=== PATIENT | female | born 1990 | race Caucasian/White ===

== ENCOUNTER → 2023-05-03 | Outpatient (CLI) | payer MEDICAID, SELFPAY ==
--- NOTE | 2023-05-03 15:58 | US_ITS ---
INDICATION: menorrhagia EXAMINATION: Ultrasound US Pelvis Non OB Complete With Transvaginal Imaging TECHNIQUE: Transabdominal and transvaginal pelvic ultrasound was performed. Grayscale, spectral waveform, and color flow Doppler evaluation of the adnexa. COMPARISON: FINDINGS: UTERUS: Anteverted. The uterus measures 9.4 x 4.7 x 4.4 cm. There is a 7 mm fibroid. The endometrial stripe measures 3 mm in AP diameter which is within normal limits. RIGHT OVARY: 4.1 x 2 point by 2.4 cm. There is a 2.1 cm cyst. There is normal arterial inflow and venous outflow present in the right ovary. LEFT OVARY: 3.1 x 2.4 x 1.7 cm. There is a 1.4 cm cystic nodule. There is a hyperechoic 5 mm nodule. There is normal arterial inflow and venous outflow present in the left ovary. FREE FLUID: Mild. US/Pelvic w/ Transvaginal IMPRESSION: Probable small fibroid. Mild pelvic fluid. Bilateral ovarian cysts. Hyperechoic subcentimeter left ovarian nodule. Electronically Signed: Emile Duke DO at 18:48 EST Reading Location ID and State: [address] [place] [address] Tel [phone], Service support ,
== END | disposition home or self-care (01) ==
LOC: US 15:57
PROVIDERS: PCP Nurse Practitioner Family; Referring Provider Nurse Practitioner Women's Health; Visit Provider Nurse Practitioner Women's Health
DX: N92.0 Excessive and frequent menstruation with regular cycle (principal)
CPT/HCPCS: 76830; 76856

== ENCOUNTER → 2023-07-25 | Outpatient (CLI) | payer MEDICAID, SELFPAY ==
[2023-07-31 13:07] LABS: HPV APTIMA, High Risk Negative (Negative)
== END | disposition home or self-care (01) ==
LOC: LABSPEC 15:09
PROVIDERS: PCP Nurse Practitioner Family; Referring Provider Advanced Practice Midwife; Visit Provider Advanced Practice Midwife
DX: Z12.4 Encounter for screening for malignant neoplasm of cervix (principal)
CPT/HCPCS: 87624; 88175; G0145

== ENCOUNTER → 2024-02-07 | Outpatient (CLI) | payer MEDICAID, SELFPAY ==
[2024-02-07 10:27] LABS: Hematocrit 38.9 % (37-47); Hemoglobin 12.9 g/dL (12.0-15.0); Mean Corp Hgb Conc 33.2 g/dL (32-36); Mean Corpuscular Hgb 29.9 pg (27.0-32.0); Mean Platelet Vol. 10.6 fl (6.2-12.0); Platelet Count 349 K/mm3 (150-450); RBC Distribution Width CV 12.3 % (11.6-14.6); RBC Distribution Width SD 40.6 fl (35.1-43.9); Red Blood Count 4.32 M/mm3 (4.2-5.4); White Blood Count 8.4 K/mm3 (4.4-11.0)
[2024-02-07 10:41] LABS: T4 Free Direct 0.88 ng/dL (0.76-1.46); Thyroid Stim Hormone (TSH) 0.578 uIU/mL (0.358-3.740)
== END | disposition home or self-care (01) ==
LOC: BWCLAB 08:44
PROVIDERS: PCP Nurse Practitioner Family; Referring Provider Obstetrics & Gynecology; Visit Provider Obstetrics & Gynecology
DX: N92.0 Excessive and frequent menstruation with regular cycle (principal)
CPT/HCPCS: 36415; 84439; 84443; 85027

== ENCOUNTER → 2024-02-12 | Outpatient (CLI) | payer MEDICAID, SELFPAY ==
--- NOTE | 2024-02-12 15:45 | EMB_PTH ---
PATIENT: RAJENDRA SULLIVAN LOC: [facility] U#:[id number] AGE/SX: 33/F ROOM: RE02/12/[address]: NADER Johnson : 1990 BED: DIS: 02/12/2024 SPEC #: [id number] RECD: 02/12/24 16:58 STATUS: FARRUKH REQ #: [id number] GISELE: 02/12/24 15:[address]: Naa Finch NP DEPT: SURGICAL PATHOLOGY RECD BY: Celina Sheldon ENTERED: 02/13/24 10:03 SP TYPE: ENDOM BX/C ERUM DR: NADER Arshad Tissues: Endometrium, NOS Procedures: Surgery Specimen Level IV HEADER OPERATION: Endometrial biopsy PRE-OP DIAGNOSIS: Abnormal uterine bleeding TISSUE SUBMITTED: Endometrial tissue MICROSCOPIC DIAGNOSIS Endometrial biopsy: Proliferative endometrium. 02/14/2024 MICROSCOPIC DESCRIPTION Slides are reviewed. GROSS DESCRIPTION Received in fixative is one container labeled with the patient's name and designated Endometrial tissue. The specimen consists of multiple irregular fragments of guillaume-pink soft tissue that in aggregate measure 3.0 x 2.5 x 0.2 cm. The specimen is totally submitted in one cassette. 02/14/2024 TC: 4 CPT:97123
== END | disposition home or self-care (01) ==
LOC: LABSPEC 16:31
PROVIDERS: PCP Nurse Practitioner Family; Referring Provider Nurse Practitioner Women's Health; Visit Provider Nurse Practitioner Women's Health
DX: N93.9 Abnormal uterine and vaginal bleeding, unspecified (principal)
CPT/HCPCS: 88305

== ENCOUNTER → 2024-02-16 | Outpatient (CLI) | payer MEDICAID, SELFPAY ==
--- NOTE | 2024-02-16 17:53 | US_ITS ---
STUDY: ULTRASOUND OF THE FEMALE PELVIS - COMPLETE REASON FOR EXAM: Female, 33 years old. Menorrhagia LMP: January 27, 2024. TECHNIQUE: Transabdominal and Transvaginal TECHNICAL QUALITY: Adequate. COMPARISON: Comparison is made with prior study dated May 03, 2023. FINDINGS: The uterus is anteverted and is in a midline position. The uterus measures 9 cm x 5 cm x 3.9 cm. Normal uterine cervix. The endometrium measures 11 mm in thickness, and is fluid distended. There is no demonstrated endometrial mass. There is no demonstrated myometrial mass. I.U.D. - The patient does not have an I.U.D. The right ovary is visualized. The right ovary measures 2.9 cm x 2.2 cm x 1.6 cm. There is no right ovarian cyst or ovarian mass. There is no visualized right adnexal mass or complex lesion. There is normal arterial and normal venous vascularity. The left ovary is visualized. The left ovary measures 2.2 cm x 2 cm x 1.5 cm. There is no left ovarian cyst or ovarian mass. There is no visualized left adnexal mass or complex lesion. There is normal arterial and normal venous vascularity. There is no fluid in the cul-de-sac. The pre void volume of the bladder was 109 ml. US/Pelvic w/ Transvaginal IMPRESSION: Normal female pelvis. Electronically Signed: Nato Sun MD at 9:27 EST ,
== END | disposition home or self-care (01) ==
LOC: US 17:50
PROVIDERS: PCP Nurse Practitioner Family; Referring Provider Obstetrics & Gynecology; Visit Provider Obstetrics & Gynecology
DX: N92.0 Excessive and frequent menstruation with regular cycle (principal)
CPT/HCPCS: 76830; 76856

== ENCOUNTER 2024-08-13 08:04 | Day surgery (SDC) | payer MEDICAID, SELFPAY ==
[2024-08-12 11:19] LABS: Absolute Neutrophil Count 6.5 X10^3/uL (2.0-7.7); Basophil# 0.12 X10^3/uL; Basophil% 1.1 % (0-1); Eosinophil# 1.05 X10^3/uL; Eosinophils% 9.8 % (0-5); Hematocrit 40.2 % (37-47); Hemoglobin 13.3 g/dL (12.0-15.0); Lymphocyte % 22.5 % (19-41); Mean Corp Hgb Conc 33.1 g/dL (32-36); Mean Corpuscular Hgb 29.8 pg (27.0-32.0); Mean Corpuscular Volume 90.1 fL (81-99); Mean Platelet Vol. 10.1 fl (6.2-12.0); Monocyte# 0.54 X10^3/uL; Monocyte% 5.1 % (0-10); NRBC Flagged by Analyzer 0 % (0-5); Neutrophil # 6.52 X10^3/uL (2.7-7.7); Neutrophil % 60.9 % (47-70); Platelet Count 365 K/mm3 (150-450); RBC Distribution Width CV 12.7 % (11.6-14.6); RBC Distribution Width SD 41.4 fl (35.1-43.9); Red Blood Count 4.46 M/mm3 (4.2-5.4); White Blood Count 10.7 K/mm3 (4.4-11.0)
[2024-08-12 11:55] LABS: Magnesium 2.2 mg/dL (1.5-2.2)
[2024-08-13] VITALS (12 sets, daily range): BP systolic 110–136; BP diastolic 62–91; PULSE 80–115; RESP 14–18; TEMP 36.1–36.6; O2SAT 97–100; BMI 26.4
[2024-08-13 08:39] LABS: Internal QC Validated? YES +Cl - CLEAR BKGD; Pregnancy, Urine Negative Negative
[2024-08-13] MEDS: Acetaminophen 500 MG Tablet 1000 MG PO (08:50)
[2024-08-13] MEDS: Celecoxib 200 MG Capsule 400 MG PO (08:50)
[2024-08-13] MEDS: Phenazopyridine 95 MG Tablet 190 MG PO (08:50)
[2024-08-13] MEDS: Gabapentin 600 MG Tablet PO (08:50)
[2024-08-13] MEDS: Scopolamine 1mg/72hr Patch 1 PATCH TD (08:51)
[2024-08-13] MEDS: Magnesium 1 GM over 15 mins IV (08:52)
[2024-08-13] MEDS: Lactated Ringers 1,000 ML 40 ML IV (08:52)
[2024-08-13] MEDS: WATER IV (08:52)
[2024-08-13] MEDS: GENTAMICIN IV (08:52)
[2024-08-13] MEDS: DEXTROSE 5% IV (08:52)
--- NOTE | 2024-08-13 09:08 | HP.PCM_ITS ---
History and Physical Date of Admission: 08/13/24 Intake Vital Signs 02/11/2415:32 07/12/2513:08 07/12/2513:10 Height 5 ft 4 in 5 ft 4 in 5 ft 4 in Weight: 141 lb 4 oz 149 lb 6 oz BMI 24.2 25.6 BP 104/80 107/73 Intake Visit Reasons: Hyst. Medicaid form needs signed Child And Family Therapist Required: No Is patient in pain?: No Allergies amoxicillin Allergy (Intermediate, Verified 07/12/24 14:08) Hivesmeperidine (From Demerol) Allergy (Intermediate, Verified 07/12/24 14:08) Swelling Medications ?Medication ?Instructions ?Recorded ?Confirmed ?Type NK 07/12/24 07/12/24 History Post menopausal: No Patient : No : No PFSH Medical History Gastroesophageal reflux disease Tubal occlusion Surgical History History of appendectomy Family History Grandmother Thyroid disorder Social History household members: spouse and children number of children: 3 current occupation: [employer] Smoking Status: Former smoker alcohol intake: never substance use type: does not use what type of physical activity do you participate in: yoga seatbelt use: always do you feel safe at home: Yes additional social history: - Nicolas [facility] Hyst. Medicaid form needs signed Details: RAJENDRA SULLIVAN is a 33 year old who presents for robotic hysterectomy for heavy and long menses that cover entire pads within an hour and last for 11 days. She had the essure procedure done. last ultrasound in 04/2023 showed a 9.5 cm uterus, no masses seen. She was initially interested in an ablation. She has only tried Apri OCP but has a hard time remembering to take them. She does not want anything in her vaginal (no nuvaring) and is not interested in depo shot due to news about it causing tumors. She is however interested in a hysterectomy with removal of the tubes. EMB was normal. Ultrasound showed the following: FINDINGS: The uterus is anteverted and is in a midline position. The uterus measures 9 cm x 5 cm x 3.9 cm. Normal uterine cervix. The endometrium measures 11 mm in thickness, and is fluid distended. There is no demonstrated endometrial mass. There is no demonstrated myometrial mass. I.U.D. - The patient does not have an I.U.D. The right ovary is visualized. The right ovary measures 2.9 cm x 2.2 cm x 1.6 cm. There is no right ovarian cyst or ovarian mass. There is no visualized right adnexal mass or complex lesion. There is normal arterial and normal venous vascularity. The left ovary is visualized. The left ovary measures 2.2 cm x 2 cm x 1.5 cm. There is no left ovarian cyst or ovarian mass. There is no visualized left adnexal mass or complex lesion. There is normal arterial and normal venous vascularity. There is no fluid in the cul-de-sac. The pre void volume of the bladder was 109 ml. US/Pelvic w/ Transvaginal IMPRESSION: Normal female pelvis. History 3 Elective abortions Hx Para 3 Spontaneous abortions Hx # Term Pregnancies Ectopic pregnancies Hx # Pregnancies Multiple births # of living children 3 Past Pregnancies Del. Date Name GA/Weeks Outcome Route Bth Weight Gen Labor Lgth Anesthesia Del Locatn Provider FOB Unknown Fuentes 2007 Unknown Tristian 2009 Unknown Yves 2012 ROS Const ROS Unobtainable: All systems reviewed & are unremarkable except as noted in H Resp Resp: Reports system reviewed and no additional complaints, except as documented; Denies cough GI GI: Reports as per HPI Psych Psych: Reports system reviewed and no additional complaints, except as documented Exam Const General: cooperative, healthy appearing, comfortable and no acute distress Resp Effort & Inspection: normal respiratory effort Skin General: no rashes or lesions noted Psych Appearance: grossly normal Speech and Movement: speech and movement normal Coding Level of Care Code Off vis,est,level 4 Diagnoses Menorrhagia with regular cycle N92.0 Pre-op evaluation Z01.818 Assessment and Plan Assessment and Plan (1) Menorrhagia with regular cycle: Status: Acute Comment: OCP-failed. Lysteda Rx . EMB:nl (2) Pre-op evaluation: Status: Acute Plan: After discussing the patient's diagnosis and treatment plan options, patient wishes to proceed with surgical management. I have discussed with the patient the risks, benefits, and alternatives of the procedure which include but are not limited to risks of anesthesia, bleeding, infection, possible damage to bowel, bladder, or surrounding vasculature which could lead to additional surgery to evaluate any complications. Patient agrees to procedure and wishes to proceed. ACOG/uptodate references given for additional information regarding procedure. plan for total robotic hysterectomy, bs, cysto .
--- NOTE | 2024-08-13 09:28 | DCINST_ITS ---
Discharge Instructions Diet Discharge Diet: No restrictions DC O2, CPAP, BIPAP needs Home O2 Discharge instructions: No Dressing / Incision Discharge Activity: May Shower May resume sexual activity in: 8 weeks Weight Bearing Status: Full weight bearing Lifting Restrictions: 10 pounds for 2 weeks Dressing / Incision Call your doctor if your incision/area has: Continuous Slow Oozing, Sudden Increased Bleeding, Increased Pain/ Swelling, Increased Redness and Foul Smelling Discharge Call your doctor if you observe: Fever of 101 or Higher, Using more than 1 pad per hour, Shortness of breath, Chest pain and Uncontrolled pain Suture Line Care: Avoid Pulling/Pushing and Avoid Pinching/Bending Remove Dressing in: 1 week (if present) Cleanse incision/area with: Soap & Water and Keep Dressing Clean & Dry Follow Up Care Please Follow Up With: Ayde Sun DO When: Call to make an appointment with your doctor for a postop visit in 2 and 6 weeks Test Results: Test results from this visit will be discussed in further detail at your follow- up appointment, if applicable. Discharge Plan Admission Primary Reason for Your Visit: hysterectomy Attending Provider: Ayde Sun Primary Care Provider: Maral Zuñiga Instructions Print Language: Lithuanian Discharge Orders/Prescriptions Prescriptions: New ibuprofen 800 mg tablet 800 mg PO Q8H PRN (Reason: pain) Qty: 30 0RF oxycodone-acetaminophen [Percocet] 5-325 mg tablet 1 tab PO Q4H PRN (Reason: pain) 7 Days Qty: 20 0RF Referrals / Follow Up: Maral Zuñiga, FLATBED STITCHER-C [Primary Care Provider] - Disposition Disposition (needs filled in before D/C Order can be placed): Home, Self Care
--- NOTE | 2024-08-13 09:38 | PRE.ANES_ITS ---
ASA Classification* ASA Classification ASA Classification: 2 Assessment & Plan Anesthesia* Anesthesia Assessment Anesthesia Assessment: Discussed sedation and/or anesthesia options, risks, benefits, and alternatives with patient/parents/legal guardian/POA. Questions invited. The patient/parents/legal guardian/POA seems to understand and agrees to proceed with anesthesia plan. Reviewed the physical assessment, medical history, allergy history and patient home medications list prior to surgery/procedure/anesthetic and documented any changes. Performed airway and anesthesia risk assessments. Anesthesia Type Anesthesia Type: General History Source History Obtained from:: Patient and Chart Anesthesia Focused Assessment* Temperature: 97.8 F Pulse Rate: 80 Blood Pressure: 115/62 Respiratory Rate: 16 Pulse Ox: 97 Oxygen Delivery Method: Room Air Airway Assessment Mouth opens: >3 cm Mallampati Score: II Focused Labs Anesthesia Preop lab: CBC WBC 10.7 K/mm3 (4.4-11.0) 08/12/24 10:44 08/12/24 RBC 4.46 M/mm3 (4.2-5.4) 08/12/24 10:44 08/12/24 Hgb 13.3 g/dL (12.0-15.0) 08/12/24 10:44 08/12/24 Hct 40.2 % (37-47) 08/12/24 10:44 08/12/24 Plt Count 365 K/mm3 (150-450) 08/12/24 10:44 08/12/24 CHEMISTRY Magnesium 2.2 mg/dL (1.5-2.2) 08/12/24 10:44 08/12/24 TSH 0.578 uIU/mL (0.358-3.740) 02/07/24 08:45 09/24 COAG Urine Test Negative Negative 08/13/24 08:28 08/13/24 Tst Clinic Negative 02/12/24 15:38 02/12/24 Pre-Assessment Diagnosis/Proposed Procedure Planned Operative Procedure(s): Total Robotic Hysterectomy Manish Salping, Cystocscopy Anesthesia History 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 When Was Last Pacemaker Check QUESTION #4 FULL TEXT: You/Your Family Experience fever (hyperthermia) with Anesthesia Last Oral Intake Last Oral intake: Last Oral Intake NPO since 06:20 08/13/24 08:39 Meds taken in AM with sips of Yes 08/13/24 08:39 water? Meds patient instructed to take am of surgery PONV PONV - underwriting clerks supervisor: PONV - underwriting clerks supervisor Female Yes 08/01/24 10:58 HX of Motion Sickness No 08/01/24 10:58 HX of N/V After Surgery Yes 08/01/24 10:58 Non-Smoker Yes 08/01/24 10:58 Duration of Surgery greater Yes 08/01/24 10:58 than 60 minutes Number of Risk Factors 4 08/01/24 10:58 PONV Score Severe Risk 08/01/24 10:58 Height & Weight Height & Weight: Anesthesia: Height & Weight Height 5 ft 4 in 08/13/24 08:39 Weight: 69.9 kg 08/13/24 08:39 Body Mass Index (BMI) 26.4 08/13/24 08:39 Respiratory Assessment Respiratory Assessment - underwriting clerks supervisor: Respiratory Tract Infection Hx - underwriting clerks supervisor Hx Respiratory Tract Infection No 08/01/24 10:58 STOP Sleep Apnea STOP Sleep Apnea - underwriting clerks supervisor: STOP Sleep Apnea - underwriting clerks supervisor Hx Hypertension No 08/01/24 10:58 Hx Sleep Apnea No 08/01/24 10:58 CPAP BIPAP Do you snore loudly (louder Yes 08/01/24 10:58 than talking or can be heard Do you often feel tired/ Yes 08/01/24 10:58 fatigued/ sleepy during daytime? Has anyone observed you stop No 08/01/24 10:58 breathing during sleep? STOP Results Positive 08/01/24 10:58 QUESTION #5 FULL TEXT : Do you snore loudly (louder than talking or can be heard through closed doors)? Tobacco Use History Tobacco Use History - underwriting clerks supervisor: Tobacco Use History - underwriting clerks supervisor Tobacco Use Smoking Status Former smoker 08/01/24 10:58 Hx Tobacco Use No 08/01/24 10:58 Years Smoking Packs Smoked per Day Smoking Cessation Date was Yes - quit smoking within 15 08/01/24 10:58 within the last 15 years years Hx Smoking Cessation Date Hx Smoking Cessation No 08/01/24 10:58 Counseling Hematologic Medial History Hematologic Hx - underwriting clerks supervisor: Hematologic Medical Hx - natural science manager Hx of Blood Transfusion No 08/01/24 10:58 Hx of Transfusion in last 3 No 08/01/24 10:58 Months Date of Last Transfusion (if within last 3 months) Ever experience any problems No 08/01/24 10:58 with transfusion(s)? Specify any problems Hx of Preganancy in last 3 No 08/01/24 10:58 Months Nurse Filling Out Transfusion IAN 08/01/24 10:58 & Questions: Date: 08/01/24 08/01/24 10:58 Time: 11:00 08/01/24 10:58 Patient unable to answer at this time (ie. confused, unrespo /Reproduction History /Reproductive History - underwriting clerks supervisor: /Reproductive Hx- underwriting clerks supervisor Hx Now No 08/01/24 10:58 Gestational Age (in weeks): EDC: Hx Hx Para Hx Section SAB No 08/01/24 10:58 Active Medications Active Medications: Current Medications Generic Name Dose Route Start Last Admin Trade Name Freq PRN Reason Stop Dose Admin Acetaminophen 1,000 mg 08/13/24 10:15 08/13/24 08:50 Acetaminophen 500 Mg Tablet PO 08/13/24 10:16 1,000 mg PREOP ONE Administration Celecoxib 400 mg 08/13/24 10:15 08/13/24 08:50 Celecoxib 200 Mg Capsule PO 08/13/24 10:16 400 mg PREOP ONE Administration Gabapentin 600 mg 08/13/24 10:08/13/24 08:50 Gabapentin 600 Mg Tablet PO 08/13/24 10:16 600 mg PREOP ONE Administration Lactated Ringer's 1,000 mls @ 40 mls/hr 08/13/24 10:15 08/13/24 08:52 IV 40 mls/hr .Q25H JORDEN Administration Clindamycin Phosphate 900 mg in 50 mls @ 75 mls/hr 08/13/24 10:15 Cleocin IV 08/13/24 10:54 INTRAOP ONE Gentamicin Sulfate 276 mg/ 56.9 mls @ 100 mls/hr 08/13/24 10:15 08/13/24 08:52 Dextrose IV 08/13/24 10:49 100 mls/hr INTRAOP ONE Administration Lactated Ringer's 1,000 mls @ 70 mls/hr 08/13/24 10:15 IV .[id number] JORDEN Insulin Human Lispro 0 unit 08/13/24 10:15 Insulin Lispro 100 Unit/Ml Insuln.Pen SC Q4H PRN PRN BG >/= 180, SEE PROTOCOL Protocol Ondansetron HCl 4 mg 08/13/24 10:15 Ondansetron 4 Mg/2 Ml Vial IV 08/13/24 10:16 INTRAOP ONE Phenazopyridine HCl 190 mg 08/13/24 10:15 08/13/24 08:50 Phenazopyridine 95 Mg Tablet PO 08/13/24 10:16 190 mg PREOP ONE Administration Scopolamine HBr 1 patch 08/13/24 10:15 08/13/24 08:51 Scopolamine 1mg/72hr Patch TD 08/13/24 10:16 1 patch PREOP ONE Administration PFSH Medical History (Updated 08/01/24 @ 10:57 by Yuridia Lopez) Depression Marijuana use Former smoker Gastroesophageal reflux disease Tubal occlusion Home Medications ?Medication ?Instructions ?Recorded ?Last Taken ?Type ibuprofen 800 mg tablet 800 mg PO Q8H PRN pain #30 t abs 08/13/24 Unknown Rx oxycodone-acetaminophen 5 mg-325 1 tab PO Q4H PRN pain 7 days #20 08/13/24 Unknown Rx mg tablet (Percocet) tabs Allergy/AdvReac Type Severity Reaction Status Date / Time amoxicillin Allergy Intermediate Hives Verified 08/13/24 08:36 meperidine (From Demerol) Allergy Intermediate Swelling Verified 08/13/24 08:36 Family History Grandmother Thyroid disorder Surgical History (Updated 08/13/24 @ 09:[address] Ayde Sun DO) History of appendectomy Social History household members: spouse and children number of children: 3 current occupation: [employer] Smoking Status: Former smoker alcohol intake: never substance use type: does not use what type of physical activity do you participate in: yoga seatbelt use: always do you feel safe at home: Yes additional social history: - Nicolas Review of Systems (Anesthesia) ROS Narrative System reviewed and no additional complaints, except as documented. Physical Exam Const alert and oriented x3 HEENT dentition normal Resp normal respiratory effort and normal air movement Auscultation: clear to auscultation bilaterally Cardio regular rate Neuro oriented x3 and moves all extremities
[2024-08-13 09:48] LABS: Bedside Glucose 95 mg/dL (74-106)
[2024-08-13] MEDS: Clindamycin 900 MG/50 ML BAG 75 MG IV (10:15)
--- NOTE | 2024-08-13 10:15 | UT_PTH ---
PATIENT: RAJENDRA SULLIVAN LOC: [facility] U#:[id number] AGE/SX: 34/F ROOM: RE08/13/[address]: Dr. Ayde Sun DO : 1990 BED: DIS: 08/13/2024 SPEC #: [id number] RECD: 08/13/24 12:10 STATUS: FARRUKH ROZ #: [id number] GISELE: 08/13/24 10:[address]: Ayde Sun DEPT: SURGICAL PATHOLOGY RECD BY: Yogi Reed ENTERED: 08/13/24 13:08 SP TYPE: UTERUS OTHR DR: Maral Zuñiga, RAG CUTTING MACHINE TENDER-C Tissues: A - Uterus, NOS Procedures: Surgery Specimen Level V HEADER OPERATION: ERAS, total robotic hysterectomy bilateral salpingectomy, cystoscopy PRE-OP DIAGNOSIS: Menorrhagia with regular cycle TISSUE SUBMITTED: A- Uterus, cervix, bilateral fallopian tubes MICROSCOPIC DIAGNOSIS A. Uterus, cervix, bilateral fallopian tubes, menorrhagia, hysterectomy and bilateral salpingectomy: * Cervix: Benign squamous epithelium and endocervical glandular tissue * Endometrium: Secretory endometrium * Myometrium: Superficial adenomyosis, leiomyomata * Bilateral fallopian tubes: Benign fallopian tubes, benign paratubal cysts MICROSCOPIC DESCRIPTION Slides are reviewed. GROSS DESCRIPTION A. Received in formalin in a container labeled with the patient's name, date of , and uterus, cervix, bilateral fallopian tubes is a hysterectomy specimen with attached cervix and bilateral attached fimbriated fallopian tubes. The fallopian tubes are amputated and the uterus is 118 g and 9.5 cm from fundus to ectocervix, 4.0 cm from cornu to cornu, and 4.4 cm from anterior to posterior. The serosa is within normal limits. The white-pink and smooth ectocervix is 3.8 x 3.2 cm with a 1.0 cm slitlike os. The specimen is bivalved to reveal a 3.8 cm in length by 0.5 cm in diameter corrugated endocervical canal. The triangular endometrial cavity is 3.8 cm in length by 2.9 cm in width. There is red-guillaume, velvety measuring up to 0.4 cm in thickness. The guillaume-pink and trabecular myometrium has an average thickness of 2.4 cm. 3 white-pink, circumscribed, and whorled intramural nodules are identified within the anterior and posterior myometrium ranging from 0.4 x 0.3 x 0.3 cm to 0.4 x 0.4 x 0.4 cm. No hemorrhage or necrosis is identified. The right and left cornu, at the attachment point of the fallopian tubes, are notable for embedded coiled, metal wires. The right fimbriated fallopian tube is 6.3 cm in length by 0.6 cm in diameter. The serosa is purple-pink, smooth, and glistening with a 0.3 cm paratubal cyst. Sectioning reveals a pinpoint lumen. The left fimbriated fallopian tube is 5.5 cm in length by 0.8 cm in diameter. The serosa is pink-boogie, smooth, and glistening with a 1.5 x 0.9 cm paratubal cyst with a 0.4 cm in length stalk. Sectioning reveals a pinpoint lumen. Barrel Bridge Assembler sections:A1. Anterior cervix with serosal shavesA2. Posterior cervix with serosal shavesA3. Anterior endomyometrium with nodule (superficial x 2)A4. Posterior endomyometrium with nodules (superficial x 2)A5. Right fimbriated fallopian tubeA6. Left fimbriated fallopian tube [facility] 08-13-2024 CPT:[id number]
[2024-08-13] MEDS: Bupivacaine 0.25% 30 ML Vial (10:31)
--- NOTE | 2024-08-13 11:21 | OP.PCM_ITS ---
Problems Associated Problem List Diagnoses (1) Menorrhagia with regular cycle: Multi Select Codes Urinary/Genital Urinary/Genital CPT Codes: 14666 Cystoscopy and 63953 TLH+BS/O <250gr uterus Operative Report (Standard) Operative Information Date of Procedure: 08/13/24 Pre-Operative Diagnosis: menorrhagia, pelvic pain Post-Operative Diagnosis: menorrhagia, pelvic pain Surgery/Procedure Performed: total robotic hysterectomy, bilateral salpingectomy with removal of essure coils, cystoscopy cryptography teacher: Yes Pet Caregiver: Ivelisse Hirsch Tasks completed by metal moulder's assistant: Closing, Trocar and Other (irrigation ) Additional refinery operator assistant?: No Type of Anesthesia: General RN Documented Start/Stop Times: Operation Date: 08/13/24 10:15 Case Time Into Pre-Op 08/13/24 08:10 Out of Pre-Op 08/13/24 09:55 Anesthesia Start 08/13/24 09:58 Into Room 08/13/24 09:58 Procedure Start 08/13/24 10:27 Procedure Start Time: 10:27 Procedure Stop Time: 11:25 Select all DRAINS/GRAFTS/IMPLANTS that apply: None Estimated Blood Loss: 30cc Specimen collected: Yes Description of specimen(s) removed: uterus, cervix, fallopian tubes, essure coils in tubes Description of surgery: Findings: 9cm size uterus, normal appearing ovaries and tubes. On exploration of the abdominal cavity the uterus, adnexa, bowel, and liver were found to be normal. Cystoscopy showed no evidence of leaking at approximately 250 cc of normal saline, positive ureteral orifices and jet flow are seen and no suture material was appreciated in the bladder. Specimens removed: Uterus and cervix, Bilateral tubes and essure coils Reason for surgery: This is a 34-year-old G3, P3 who presented to my office with history of heavy periods. she tried ocps without success. the planned procedure is for a robotic hysterectomy the risks benefits and alternatives were discussed with the patient the patient had a clear understanding of the procedure and a consent form was signed. Procedure: The patient was placed in the dorsal low lithotomy position and prepped and draped in the normal sterile fashion both abdominally and in the perineum. Her legs were placed in stirrups a Jenkins catheter was inserted into the urethra without difficulty. A weighted speculum was placed in the vagina and a single- tooth tenaculum was used to grasp the anterior lip of the cervix. An advincula uterine manipulator was inserted through the cervix without complication. It was then tied into place at the 2 and 10:00 locations on the cervix. Gloves were changed and attention was turned towards the abdomen. Approximately 23 cm above the pubic symphysis in the midline, and after Marcaine injection, a 8 mm incision was made. An 8 mm trocar was inserted through the laparoscope, then inserted into the abdomen under direct visualization using the laparoscope. Good abdominal placement was noted and no complications were appreciated. An air seal device was utilized to create pneumoperitoneum. At 12 cm lateral to the midline on the left and right sides 8 mm accessory ports were placed. Next a left upper quadrant 8 mm refinery operator assistant port site was placed. The patient was placed in steep Trendelenburg position. The robot was docked. The hysterectomy was initiated first by taking down the round ligament on each side using the vessel sealer device. The broad ligament was then and taken down using the vessel sealer device. Next the bladder flap was taken down without complication. This was done using monopolar cautery to the level of the cervical vaginal junction. After the bladder flap was created, uterine vessels were then isolated and cauterized using the vessel sealer device and EndoShears. At this point the uterine vessels were taken down further starting from the ascending branch, dissecting along the edges of the cervix to the level of the cervical vaginal junction with hemostasis appreciated. The cervical vaginal junction was then using monopolar cautery in a circumferential pattern across the superior aspect of the cervix. The specimen was delivered through the vagina and sent to pathology. The remaining vaginal cuff was then closed using a V lock suture. This was performed in a running technique. Excellent hemostasis was obtained and good closure was noted. Irrigation was then performed. All operative sites were noted to be hemostatic. A cystoscopy was performed with a 70 degree cystoscope through the urethra into the bladder without complication. The bladder was instilled with approximately 250 cc of normal saline. Intraoperative images were made. Ureteral orifices and jet was identified from the left side with no problem. The right was slow to flow. A whistle tip catheter was gently guided into the ureter and passed through without resistance. The catheter was pulled back and the ureter jet was identified. No suture material was appreciated in the bladder. The bladder was then drained and cystoscope was removed. The abdominal cavity was again examined using the laparoscope after the robot was undocked. All operative sites were noted to be hemostatic. The trochars were removed under direct visualization without complication and pneumoperitoneum was reduced. At this point the skin was then closed using 4-0 Monocryl subcuticular stitch and sealed with surgical glue. The patient tolerated the procedure well sponge lap and needle counts were correct x2 the patient was taken to the recovery room in stable condition. Surgical Findings: normal uterus, tubes, ovaries. normal bladder Complications Complications: No Admit VTE Documentation VTE Present on Admission: Yes VTE Mechan Device Prophylaxis: SCD's VTE Pharm Prophylaxis ordered?: No
--- NOTE | 2024-08-13 11:45 | PCM.POST.ANE ---
Anesthesia: Postop Eval I Current Vital Signs Temperature: 97.1 F Pulse Rate: 102 Blood Pressure: 134/77 Respiratory Rate: 18 Pulse Ox: 100 Oxygen Delivery Method: Simple Mask Oxygen Flow Rate (L/min): 6 Assessment Airway patent: Yes Spontaneous unlabored respirations: Yes Mental status: Asleep nausea: No Vomiting: No Anesthesia Complication: No Fluid Hydration Crystalloid volume administer (ml): 900 Total IV fluid infused: 900 Progress Note Anesthesia document: Postop Eval 1 completed: Yes
--- NOTE | 2024-08-13 13:54 | POSTOPAN2_ITS ---
Anesthesia Postop Eval I Sum Postop Eval Completion status Anesthesia document: Postop Eval 1 completed: Yes Anesthesia Postop Eval I Summary Anesthesia Postop Eval I Summary: Anesthesia Postop Eval I: Assessment Summary Airway patent Yes 08/13/24 11:46 [email or web address] Spontaneous unlabored Yes 08/13/24 11:46 [email or web address] respirations Mental status Asleep 08/13/24 11:46 [email or web address] nausea No 08/13/24 11:46 [email or web address] Vomiting No 08/13/24 11:46 [email or web address] Anesthesia Postop Eval I: Fluid Summary Crystalloid volume administer 900 08/13/24 11:46 [email or web address] (ml) Colloids volume administered ( ml) Blood Product volume administered (ml) Total IV fluid infused 900 08/13/24 11:46 [email or web address] Anesthesia Postop Eval I: Summary Notes Anesthesia Complication No 08/13/24 11:46 [email or web address] Anesthesia Complication Comment: Post-operative progress note Anesthesia: Postop Eval II Evaluation Mental status: Awake and Calm Pain Level: 2 nausea: No Vomiting: No Complications Anesthesia Complication: No
--- NOTE | 2024-08-13 13:54 | PCM.POSTANE2 ---
Anesthesia Postop Eval I Sum Postop Eval Completion status Anesthesia document: Postop Eval 1 completed: Yes Anesthesia Postop Eval I Summary Anesthesia Postop Eval I Summary: Anesthesia Postop Eval I: Assessment Summary Airway patent Yes 08/13/24 11:46 [email or web address] [email or web address] Spontaneous unlabored Yes 08/13/24 11:46 [email or web address] respirations Mental status Asleep 08/13/24 11:46 [email or web address] nausea No 08/13/24 11:46 [email or web address] [email or web address] Vomiting No 08/13/24 11:46 [email or web address] Anesthesia Postop Eval I: Fluid Summary Crystalloid volume administer 900 08/13/24 11:46 [email or web address] (ml) Colloids volume administered ( ml) Blood Product volume administered (ml) Total IV fluid infused 900 08/13/24 11:46 [email or web address] Anesthesia Postop Eval I: Summary Notes Anesthesia Complication No 08/13/24 11:46 [email or web address] Anesthesia Complication Comment: Post-operative progress note Anesthesia: Postop Eval II Evaluation Mental status: Awake and Calm Pain Level: 2 nausea: No Vomiting: No Complications Anesthesia Complication: No
== END 2024-08-13 15:10 | disposition home or self-care (01) ==
LOC: SDC 08:04 → AC 08:05
PROVIDERS: Anesthesiology; PCP Nurse Practitioner Family; Referring Provider Obstetrics & Gynecology; Visit Provider Obstetrics & Gynecology
PROC: 0UT90ZZ Resection of Uterus, Open Approach (ICD-10-PCS; CPT 58571; principal; 2024-08-13 09:55)
DX: N80.03 Adenomyosis of the uterus (principal); D25.9 Leiomyoma of uterus, unspecified; N83.8 Other noninflammatory disorders of ovary, fallopian tube and broad ligament; N92.0 Excessive and frequent menstruation with regular cycle; Z87.891 Personal history of nicotine dependence
CPT/HCPCS: 58571; 00840; 36415; 81025; 82962; 83735; 85025; 86850; 86900; 86901; 88307; C1758; J2405; J3475